=== PATIENT | female | born 1995 | race Two or more races ===

== ENCOUNTER 2017-03-03 20:27 | Emergency (ER) | payer SELFPAY ==
[~2017-03-03] VITALS: Ht 165.1 cm; Wt 77.1 kg
--- NOTE | 2017-03-03 20:24 | Emergency Room Report ---
History of Present Illness Present Illness HPI 22YOF BIBEMS with allegedly taking 26 tylenol at home for suicidal ideation EMS states it was Rx that says "number 3" on it. Denies co-ingestants or ETOH Allergies: Coded Allergies: No Known Allergies (Unverified , 03/03/17) Review of Systems All Other Systems: negative except mentioned in HPI Physical Exam Sp02 EP Interpretation: reviewed, normal General Appearance: normal inspection, well appearing, no apparent distress, alert, GCS 15, non-toxic, other - tearful Head: normocephalic, atraumatic Eyes: bilateral eye PERRL, bilateral eye EOMI ENT: normal ENT inspection, hearing grossly normal, normal voice Neck: normal inspection, full range of motion, supple, no bony tend Respiratory: normal inspection, lungs clear, normal breath sounds, no respiratory distress, no retraction, no wheezing Cardiovascular #1: regular rate, rhythm, no edema Gastrointestinal: normal inspection, normal bowel sounds, non tender, soft, no guarding, no hernia Genitourinary: no CVA tenderness Musculoskeletal: normal inspection, back normal, normal range of motion, Raúl' s Sign negative Neurologic: normal inspection, alert, oriented x3, responsive, facility worker III-XII nml as tested, motor strength/tone normal, speech normal Psychiatric: normal inspection, judgement/insight normal, mood/affect normal Procedures Critical Care Time Critical Care Time 40 minutes 22YOF with SI and alleged Tylenol OD CC time includes review of labs, serial Tylenol levels, discussion with [place] [facility], possible dosing of NAC antidote, review of imaging, multiple bedtime reassessment, d/w hospitalist Medical Decision Making Diagnostic Impression: Primary Impression: Tylenol overdose Qualified Codes: T39.1X2A - Poisoning by 4-aminophenol derivatives, intentional self-harm, initial encounter Additional Impressions: Suicidal ideation Hypokalemia ER Course Spoke to Meaghan at Poison Control office: recommended Charcoal, check Tylenol level now and again at 11pm patient not nauseated - will give zofran first then Charcoal Level at 8pm was 34. Informed Dr Wang at signout and Admittin panel physician Dr Richardson that level needs to be rechecked at 11pm. If >150, will need NAC Patient tolerating PO, got charcoal Mild hypoK- repleted in ED No other major metabolic abnormalities EKG Diagnostic Results Rate: normal Rhythm: NSR ST Segments: no acute changes ASA given to the pt in ED: No Rhythm Strip Diag. Results EP Interpretation: yes Rate: 65 Rhythm: NSR, no PVC's, no ectopy Status: improved Disposition: ADMITTED INPATIENT Condition: Critical MIKE DEE M.D. Mar 03, 2017 20:24
[~2017-03-03 20:27] MED LIST: NKM
[2017-03-03] MEDS ORDERED: Activated Charcoal 50gm/240ml Btl ORAL ONE (20:30)
[2017-03-03 20:35] VITALS: BP 138/83
[2017-03-03 21:05] LABS: BASOPHILS % (AUTO) 1.1 % (0.0-2.0); EOSINOPHILS % (AUTO) 0.5 % (0.0-3.0); LYMPHOCYTES % (AUTO) 31.4 % (20.0-45.0); MEAN CORPUSCULAR HGB CONC 32.5 G/DL (32.0-36.0); MEAN CORPUSCULAR VOLUME 80 FL (80-99); MEAN PLATELET VOLUME 6.6 FL (6.5-10.1); MONOCYTES % (AUTO) 8.7 % (1.0-10.0); NEUTROPHILS % (AUTO) 58.3 % (45.0-75.0); PLATELET COUNT 323 K/UL (150-450); RED BLOOD COUNT 5.31 M/UL (4.20-5.40); RED CELL DISTRIBUTION WIDTH 12.8 % (11.6-14.8); WHITE BLOOD COUNT 10.8 K/UL (4.8-10.8)
[2017-03-03 21:12] LABS: APPEARANCE,URINE CLEAR; KETONES,URINE 1+ (NEGATIVE); LEUKOCYTE ESTERASE ,URINE 1+ (NEGATIVE); NITRITE,URINE NEGATIVE (NEGATIVE); PH,URINE 7 (4.5-8.0); PROTEIN,URINE NEGATIVE (NEGATIVE); UROBILINOGEN,URINE NORMAL MG/DL (0.0-1.0)
[2017-03-03 21:14] LABS: ACETAMINOPHEN 34 ug/mL (10-30); ALANINE AMINOTRANSFERASE 28 U/L (3-33); ALBUMIN/GLOBULIN RATIO 1.4 (1.0-2.7); ALCOHOL < 10 mg/dL; ANION GAP 14 (5-15); ASPARTATE AMINO TRANSFERASE 20 U/L (5-40); CALCIUM 9.2 mg/dL (8.6-10.2); CARBON DIOXIDE 25 mEQ/L (20-30); CHLORIDE 101 mEQ/L (98-107); CREATININE 0.7 mg/dL (0.5-0.9); GLOMERULAR FILTRATION RATE > 60 mL/min (>60); HEMOLYSIS 2; POTASSIUM 3.2 mEQ/L (3.4-4.9); SODIUM 140 mEQ/L (135-145); TOTAL PROTEIN 7.7 g/dL (6.6-8.7)
[2017-03-03 21:27] LABS: BACTERIA,URINE FEW /HPF; RBC,URINE 0-2 /HPF (0 - 2); SQUAMOUS EPITHELIAL CELL,UR FEW /LPF (NONE/OCC); WBC,URINE 0-2 /HPF (0 - 2)
[2017-03-03] MEDS ORDERED: LORazepam Inj 2mg/ml 1ml IV PRN (21:45)
[2017-03-03] MEDS ORDERED: Morphine Sulfate 2mg/ml Inj IVP PRN (21:45)
[2017-03-03 22:04] VITALS: BP 120/81
[2017-03-03 23:49] VITALS: BP 118/68
[2017-03-04] VITALS (14 sets, daily range): BP systolic 110–137; BP diastolic 69–88
[2017-03-04] MEDS ORDERED: D5 1/2NS 1,000 ML IV SCH (08:00)
[2017-03-04] MEDS ORDERED: Heparin 5000 units/ml inj SUBQ SCH (09:00)
[2017-03-04] MEDS ORDERED: Famotidine 20 MG/ 2ML VIAL IVP ONE (11:00)
[2017-03-04] MEDS ORDERED: Haloperidol 5mg/ml Inj IM ONE (11:30)
[2017-03-04] MEDS ORDERED: LORazepam Inj 2mg/ml 1ml IM ONE (11:30)
[2017-03-04] MEDS ORDERED: LEXAPRO10 MG ORAL (14:06)
--- NOTE | 2017-03-04 14:14 | Emergency Room Report ---
Physical Exam Vital Signs Date Time Temp Pulse Resp B/P (MAP) Pulse Ox O2 Delivery O2 Flow Rate FiO2 03/03/17 20:12 98.6 84 16 138/83 100 Room Air Medical Decision Making Diagnostic Impression: Primary Impression: Tylenol overdose Qualified Codes: T39.1X2A - Poisoning by 4-aminophenol derivatives, intentional self-harm, initial encounter Additional Impressions: Suicidal ideation Hypokalemia ER Course Hospital Course 22-year-old F presents to ED s/p tylenol overdose Clinical course Patient initially seen and evaluated by Dr Sebastian; please see his note for full history and physical Patient placed on 5150 by [employer] [facility] reviewed Tylenol level initially in the 30s but trended down after serial labs were checked. Patient subsequently medically cleared Patient remained agitated here. Requiring Haldol and Ativan. Patient was restrained once and slept her restraints and tried to escape but was restrained by hospital staff On reassessment patient is now more calm. Evaluated by Dr. Kathleen (psychiatry) ; she please patient is not a danger to herself. 5150 released. Recommends discharging on Lexapro and giving outpatient mental health referral i. I feel this is a highly complex case requiring extensive working including EKG/Rhythm strip, Xray/CT/US, Blood/urine lab work, repeat exams while in ED, and administration of strong opiates/narcotics for pain control, admission to hospital or close patient follow up. Diagnosis - tylenol overdose, suicidal dieation, hypokalemia Stable and discharged to home with Rx Lexapro. Followup with psych. Return to ED if symptoms recur or worsen Labs Test 03/03/17 19:29 03/03/17 23:00 03/04/17 06:11 White Blood Count 10.8 K/UL (4.8-10.8) Red Blood Count 5.31 M/UL (4.20-5.40) Hemoglobin 13.8 G/DL (12.0-16.0) Hematocrit 42.5 % (37.0-47.0) Mean Corpuscular Volume 80 FL (80-99) Mean Corpuscular Hemoglobin 26.0 PG (27.0-31.0) Mean Corpuscular Hemoglobin Concent 32.5 G/DL (32.0-36.0) Red Cell Distribution Width 12.8 % (11.6-14.8) Platelet Count 323 K/UL (150-450) Mean Platelet Volume 6.6 FL (6.5-10.1) Neutrophils (%) (Auto) 58.3 % (45.0-75.0) Lymphocytes (%) (Auto) 31.4 % (20.0-45.0) Monocytes (%) (Auto) 8.7 % (1.0-10.0) Eosinophils (%) (Auto) 0.5 % (0.0-3.0) Basophils (%) (Auto) 1.1 % (0.0-2.0) Urine Color Pale yellow Urine Appearance Clear Urine pH 7 (4.5-8.0) Urine Specific [place] 1.005 (1.005-1.035) Urine Protein Negative (NEGATIVE) Urine Glucose (UA) Negative (NEGATIVE) Urine Ketones 1+ (NEGATIVE) Urine Occult Blood 1+ (NEGATIVE) Urine Nitrite Negative (NEGATIVE) Urine Bilirubin Negative (NEGATIVE) Urine Urobilinogen Normal MG/DL (0.0-1.0) Urine Leukocyte Esterase 1+ (NEGATIVE) Urine RBC 0-2 /HPF (0 - 2) Urine WBC 0-2 /HPF (0 - 2) Urine Squamous Epithelial Cells Few /LPF (NONE/OCC) Urine Bacteria Few /HPF (NONE) Urine HCG, Qualitative Negative Sodium Level 140 mEQ/L (135-145) Potassium Level 3.2 mEQ/L (3.4-4.9) Chloride Level 101 mEQ/L (98-107) Carbon Dioxide Level 25 mEQ/L (20-30) Anion Gap 14 (5-15) Blood Urea Nitrogen 6 mg/dL (7-23) Creatinine 0.7 mg/dL (0.5-0.9) Estimat Glomerular Filtration Rate > 60 mL/min (>60) Glucose Level 87 mg/dL (74-106) Lactic Acid Level 1.60 mmol/L (0.66-2.22) Calcium Level 9.2 mg/dL (8.6-10.2) Total Bilirubin 0.3 mg/dL (0.0-1.2) Aspartate Amino Transf (AST/SGOT) 20 U/L (5-40) Alanine Aminotransferase (ALT/SGPT) 28 U/L (3-33) Alkaline Phosphatase 115 U/L (35-104) Total Protein 7.7 g/dL (6.6-8.7) Albumin 4.5 g/dL (3.5-5.2) Globulin 3.2 g/dL Albumin/Globulin Ratio 1.4 (1.0-2.7) Salicylates Level < 1 mg/dL (10-30) Urine Opiates Screen Positive (NEGATIVE) Acetaminophen Level 34 ug/mL (10-30) 27 ug/mL (10-30) 22 ug/mL (10-30) Urine Barbiturates Screen Negative (NEGATIVE) Phencyclidine (PCP) Screen Negative (NEGATIVE) Urine Amphetamines Screen Positive (NEGATIVE) Urine Benzodiazepines Screen Negative (NEGATIVE) Urine Cocaine Screen Negative (NEGATIVE) Urine Marijuana (THC) Screen Positive (NEGATIVE) Serum Alcohol < 10 mg/dL Last Vital Signs Date Time Temp Pulse Resp B/P (MAP) Pulse Ox O2 Delivery O2 Flow Rate FiO2 03/04/17 12:30 92 22 100 Room Air 03/04/17 08:56 97.4 116/75 Status: improved Disposition: HOME, SELF-CARE Condition: Stable Scripts Escitalopram Oxalate* (LEXAPRO*) 10 Mg Tablet 10 MG ORAL BEFORE BREAKFAST, #20 TAB Prov: MARLYN AGRAWAL M.D. 03/04/17 Referrals: NOT CHOSEN [facility]/,REFERRING (PCP) Patient Instructions: Acetaminophen Overdose MARLYN AGRAWAL M.D. Mar 04, 2017 14:14
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
--- NOTE | 2017-03-06 14:46 | Cardiology Report ---
APPROVED REPORT EKG Measurement Heart [id number] HI [id number] Normal sinus rhythm with sinus arrhythmia Normal ECG
== END 2017-03-04 14:40 | disposition home or self-care (01) ==
LOC: EDBD 20:27 → EMR 20:57 → EDBEDREQSVC 22:52 → EDBEDREQ 22:52 → EMR 03-04 14:40
DX: T39.1X2A Poisoning by 4-Aminophenol derivatives, intentional self-harm, initial encounter (principal); Y92.019 Unspecified place in single-family (private) house as the place of occurrence of the external cause; E87.6 Hypokalemia
CPT/HCPCS: 36415; 80053; 80300; 81003; 81025; 83605; 85025; 93005; 96372; 96374; 96375; 96376; 99291; G0480; J1630; J2405; 80329; J8499